=== PATIENT | female | born 1980 | race Caucasian/White ===

== ENCOUNTER 2024-07-08 09:38 | Emergency (ER) | payer BC ==
[2024-07-08 10:23] LABS: HEMOGLOBIN 16.3 g/dL (11.5-16.5); MEAN CORPUSCULAR VOLUME 88 fL (76-96); MEAN PLATELET VOLUME 10.2 fL (6.0-10.0); PLATELET COUNT,PLT 305 K/uL (150-500); RED BLOOD CELL COUNT 5.43 M/uL (3.80-5.80); RED CELL DISTRIBUTION WIDTH 14.2 % (11.0-16.0)
[2024-07-08 10:56] LABS: INFLUENZA A NAA NEGATIVE (NEGATIVE); INFLUENZA B NAA NEGATIVE (NEGATIVE); RESPIRATORY SYNCYTIAL VIR NAA NEGATIVE (NEGATIVE)
[2024-07-08 11:01] LABS: CORONAVIRUS COVID-19 NAA NEGATIVE (NEGATIVE)
[2024-07-08] MEDS: Albuterol/Ipratropium 3.0-0.5 MG/3 ML Neb Soln NEB PRN (11:11)
[2024-07-08 11:13] LABS: GIANT PLATELETS OCCASIONAL; PLATELET COUNT ESTIMATE ADEQUATE
[2024-07-08] MEDS ORDERED: Azithromycin 250 MG Tab ONE (12:00)
[2024-07-08] MEDS ORDERED: Sodium Chloride 0.9% 10 ML Syringe FLUSH PRN (13:14)
[2024-07-08] MEDS ORDERED: Ondansetron 4 MG/2 ML SDV IVPUSH PRN (13:19)
[2024-07-08] MEDS: Ketorolac 30 MG/ML SDV IM ONE (13:25)
[2024-07-08] MEDS: Ondansetron 4 MG/2 ML SDV ONE (13:29)
[2024-07-08] MEDS: Albuterol/Ipratropium 3.0-0.5 MG/3 ML Neb Soln ONE (13:59)
[2024-07-08] MEDS: Sodium Chloride 0.9% 1,000 ML IV SCH (14:04)
[2024-07-08] MEDS: Albuterol/Ipratropium 3.0-0.5 MG/3 ML Neb Soln NEB SCH (14:15)
[2024-07-08] MEDS: Levofloxacin/Dextrose 5%-Water 750 MG in Levofloxacin/Dextrose 5%-Water 150 ML IV SCH (14:16)
[2024-07-08 14:34] LABS: ALBUMIN 3.5 g/dL (3.4-5.0); ANION GAP 12.5 mmol/L (5.0-15.0); BILIRUBIN TOTAL 1.1 mg/dL (0.0-1.0); BUN/CREATININE RATIO 14.4 (6-25); CALCIUM 8.6 mg/dL (8.5-10.1); CREATININE 0.9 mg/dL (0.55-1.02); EST CRCL DRUG DOSING (CG) 72.53 mL/min; POTASSIUM,K 3.5 mmol/L (3.5-5.1); PROTEIN TOTAL,TP 7.1 g/dL (6.4-8.2)
[2024-07-08] MEDS: Ketorolac 30 MG/ML SDV ONE (14:38)
[2024-07-08] MEDS: Levofloxacin/Dextrose 5%-Water 150 ML IV SCH (14:38)
[2024-07-08] MEDS ORDERED: Prochlorperazine 10 MG in Sodium Chloride 0.9% 50 ML IV ONE (16:11)
[2024-07-08] MEDS: Prochlorperazine 10 MG/2 ML SDV IVPUSH ONE (17:30)
[2024-07-08] MEDS: HYDROmorphone 2 MG/ML Syringe IVPUSH PRN (17:36)
[2024-07-09] MEDS ORDERED: Sertraline 50 MG Tab PO SCH ×2 (08:00)
[2024-07-09] MEDS: Sertraline 100 MG Tab PO SCH ×2 (08:12→08:19)
[2024-07-09 08:20] LABS: BASOPHILS ABSOLUTE AUTO 0.06 K/uL (0.02-0.10); BASOPHILS PERCENT AUTO 0.2 % (0.0-0.5); EOSINOPHILS ABSOLUTE AUTO 0.22 K/uL (0.04-0.40); EOSINOPHILS PERCENT AUTO 0.6 % (1.0-5.0); HEMOGLOBIN 16.6 g/dL (11.5-16.5); LYMPHOCYTES PERCENT AUTO 2.2 % (20.0-40.0); MEAN CORPUSCULAR HEMOGLOBIN 30.1 pg (27.0-32.0); MEAN CORPUSCULAR HGB CONC 33.9 g/dL (31.0-35.0); MEAN CORPUSCULAR VOLUME 89 fL (76-96); MEAN PLATELET VOLUME 10.8 fL (6.0-10.0); MONOCYTES ABSOLUTE AUTO 1.18 K/uL (0.20-0.80); MONOCYTES PERCENT AUTO 3.2 % (3.0-10.0); NEUTROPHILS ABSOLUTE AUTO 34.13 K/uL (2.00-7.50); NEUTROPHILS PERCENT AUTO 93.8 % (45.0-70.0); PLATELET COUNT,PLT 306 K/uL (150-500); RED BLOOD CELL COUNT 5.51 M/uL (3.80-5.80); RED CELL DISTRIBUTION WIDTH 14.7 % (11.0-16.0)
[2024-07-09 08:32] LABS: A/G RATIO 0.8 (0.8-2.0); ALBUMIN 2.7 g/dL (3.4-5.0); BUN/CREATININE RATIO 11.4 (6-25); CALCIUM 8.1 mg/dL (8.5-10.1); CARBON DIOXIDE,CO2 23.1 mmol/L (21.0-32.0); CREATININE 1.05 mg/dL (0.55-1.02); EST CRCL DRUG DOSING (CG) 62.16 mL/min; POTASSIUM,K 4.1 mmol/L (3.5-5.1); PROTEIN TOTAL,TP 6.3 g/dL (6.4-8.2)
[2024-07-09 08:47] LABS: WHITE BLOOD CELL COUNT,WBC 36.4 K/uL (4.0-11.0)
[2024-07-09 10:36] VITALS: BP 114/74; PULSE 121
[2024-07-09] MEDS ORDERED: Prochlorperazine 10 MG in Sodium Chloride 0.9% 50 ML IV ONE (10:43)
[2024-07-09] MEDS: Prochlorperazine 10 MG/2 ML SDV IVPUSH ONE (10:57)
== END 2024-07-09 11:55 ==
LOC: LB.ED 09:38 → LB.MS 13:34
PROVIDERS: ADMIT Surgery; ATTEND Surgery
DX: J18.9 Pneumonia, unspecified organism (principal); E03.9 Hypothyroidism, unspecified; Z79.899 Other long term (current) drug therapy; Z79.890 Hormone replacement therapy; Z88.2 Allergy status to sulfonamides; Z88.0 Allergy status to penicillin
CPT/HCPCS: 0241U; 36415; 71046; 80053; 83605; 85025; 87040; 94640; 99222; 99238; 99284; A9270; J0780; J1170; J1885; J1956; J2405; J7030; 96365; 96366; 96375; 96376; G0378; J7620

== ENCOUNTER 2024-12-08 02:25 | Emergency (ER) | payer BC ==
[2024-12-08] MEDS: Albuterol/Ipratropium 3.0-0.5 MG/3 ML Neb Soln NEB PRN (02:30)
[2024-12-08] MEDS: Albuterol 0.083% 2.5 MG/3 ML Neb Soln NEB PRN (02:35)
[2024-12-08] MEDS: methylPREDNISolone Sodium Succinate 125 MG/2 ML SDV IVPUSH ONE (02:38)
[2024-12-08] MEDS: LORazepam 2 MG/ML SDV IVPUSH ONE (02:40)
[2024-12-08] MEDS: Budesonide 0.5 MG/2 ML Neb Susp NEB ONE (02:50)
[2024-12-08 03:23] LABS: HEMATOCRIT 42.2 % (37.0-47.0); HEMOGLOBIN 14.5 g/dL (11.5-16.5); MEAN CORPUSCULAR HEMOGLOBIN 30.4 pg (27.0-32.0); MEAN CORPUSCULAR HGB CONC 34.4 g/dL (31.0-35.0); MEAN PLATELET VOLUME 10.4 fL (6.0-10.0); RED BLOOD CELL COUNT 4.77 M/uL (3.80-5.80); RED CELL DISTRIBUTION WIDTH 13.2 % (11.0-16.0); WHITE BLOOD CELL COUNT,WBC 8.5 K/uL (4.0-11.0)
[2024-12-08 03:38] LABS: ANION GAP 18.2 mmol/L (5.0-15.0); BUN/CREATININE RATIO 9.6 (6-25); CARBON DIOXIDE,CO2 21.9 mmol/L (21.0-32.0); CREATININE 0.73 mg/dL (0.55-1.02); EST CRCL DRUG DOSING (CG) 92.06 mL/min; MAGNESIUM 2.1 mg/dL (1.8-2.4); POTASSIUM,K 3.1 mmol/L (3.5-5.1)
[2024-12-08 04:23] LABS: INFLUENZA A NAA POSITIVE (NEGATIVE); INFLUENZA B NAA NEGATIVE (NEGATIVE); RESPIRATORY SYNCYTIAL VIR NAA NEGATIVE (NEGATIVE)
[2024-12-08 04:27] LABS: CORONAVIRUS COVID-19 NAA NEGATIVE (NEGATIVE)
[2024-12-08] MEDS: Oseltamivir 75 MG Cap PO ONE (05:32)
[2024-12-08] MEDS: Potassium Chloride Riders 10 MEQ in Premix Bag 1 BAG IV SCH (05:40)
[2024-12-08] MEDS: Potassium Chloride Riders 50 ML ONE ×2 (05:50→06:41)
[2024-12-08] MEDS: Potassium Chloride Riders 10 MEQ in Premix Bag 2 BAG IV ONE (06:42)
[2024-12-08 09:51] LABS: ANION GAP 18.1 mmol/L (5.0-15.0); BUN/CREATININE RATIO 9.9 (6-25); CALCIUM 8.3 mg/dL (8.5-10.1); CARBON DIOXIDE,CO2 22.9 mmol/L (21.0-32.0); CREATININE 0.71 mg/dL (0.55-1.02); EST CRCL DRUG DOSING (CG) 94.66 mL/min
[2024-12-08] MEDS: methylPREDNISolone Sodium Succinate 40 MG/1 ML SDV IVPUSH ONE (10:08)
[2024-12-08] MEDS ORDERED: Oseltamivir 75 MG Cap ONE ×2 (10:20→19:00)
[2024-12-08 10:45] VITALS: BP 120/59; PULSE 115
[2024-12-08] MEDS ORDERED: predniSONE 10 MG Tab ONE (19:00)
[2024-12-08] MEDS ORDERED: Benzonatate 100 MG Cap ONE (19:00)
== END 2024-12-08 10:27 | disposition home or self-care (01) ==
LOC: LB.ED 02:25
DX: J10.1 Influenza due to other identified influenza virus with other respiratory manifestations (principal); J21.9 Acute bronchiolitis, unspecified; E03.9 Hypothyroidism, unspecified; Z88.0 Allergy status to penicillin; Z88.5 Allergy status to narcotic agent; Z88.8 Allergy status to other drugs, medicaments and biological substances; Z79.890 Hormone replacement therapy; Z79.899 Other long term (current) drug therapy
CPT/HCPCS: 0241U; 36415; 71045; 80048; 83735; 85027; 94640; 96365; 96366; 96367; 96375; 96376; 99284; 99285-25; A9270-GY; J2060; J2919; J3475; J3480; J7512; J7620